=== PATIENT | female | born 1965 | race Caucasian/White ===

== ENCOUNTER → 2018-03-15 | Day surgery (SDC) | payer OTHER ==
[~2018-03-15] VITALS: Ht 167.6 cm; Wt 59.9 kg
[~2018-03-15] MED LIST: ALEVE220 M1 PO; AMITRIPTYLINE H25 M2 PO; ARIMIDEX1 M1 PO; AROMASIN25 M1 PO; CHLORDIAZEPOXID25 M3 PO; DULOXETINE HCL60 MG PO; LORAZEPAM0.5 M1 PO
--- NOTE | 2018-03-15 17:32 | Operative Report ---
Operative/Inv Procedure Report Surgery Date: 03/15/18 Name of Procedure: Right mastopexy revision Abdominal scar release Pre-Operative Diagnosis: Right breast ptosis, asymmetry Abdominal contour deformity Post-Operative Diagnosis: Right breast ptosis, asymmetry Abdominal contour deformity Estimated Blood Loss: zay Surgeon/Induction Coordination Engineer: Fareed Francisco MD Anesthesia: general endotracheal tube Monitors: NA IV Fluids: 1 liter of crystalloids Implants: NA Urine Output: NA Drains: NA Specimens: right breast skin Microbiology: NA Tourniquet: NA Complications: None Condition: Stable Operative Indication: 53 yo female with history of left breast cancer s/p delayed left breast reconstruction with MICHELLE flap in 2013 followed by subsequent revisions with fat grafting and contralateral breast symmetrizing with mastopexy presents for right mastopexy revision, abdominal scar release. Operative/Procedure Note Note: Patient was taken to the operating room and placed in supine position. SCD's were placed on the lower extremity. Antibiotics (Ancef) given. General anesthesia administered. Anterior chest wall with abdomen prepped and draped in sterile fashion. Right lower abdominal scar surgical site injected with 5 cc of 1% lidocaine with epinephrine. Attention was turned to the right breast. Pre-op markings reviewed. 42 mm cookie cutter was used to incise the nipple areolar complex. The central pedicle was de-epithelized in a mosaic pattern. Hemostasis was then achieved. Excised skin was sent to pathology. The deep dermis of the medial and lateral pillars were reapproximated with a 3-0 Vicryl in an interrupted fashion. The nipple areolar complex was then reapproximated with a 3 -0 Vicryl in an interrupted fashion. All skin edges were reapproximated with a running 4-0 monocryl. Attention was then turned to right lower abdomen. 1 cm incision made within the previous abdominal scar. Rocha cannula used to tunnel through subcutaneous tissue until it reached the area of contour deformity. Scar tissue released within a 5 cm radius. Improved contour noted. Incision site deep dermis closed with a 4-0 monocryl in an interrupted fashion. Dermabond, telfa, tegaderm, and surgical bra placed. Counts were correct. Patient tolerated the procedure well, extubated, and returned to the recover room in stable condition. Findings: NA Discharge Disposition: PACU Additional Comments: NA
== END ==
LOC: STS 03:25
DX: Z85.3 Personal history of malignant neoplasm of breast (principal); Z90.13 Acquired absence of bilateral breasts and nipples; N64.81 Ptosis of breast; L91.0 Hypertrophic scar; M95.8 Other specified acquired deformities of musculoskeletal system; Z87.891 Personal history of nicotine dependence
CPT/HCPCS: J0690; J1580; J2250; J3490